=== PATIENT | male | born 1945 | race Caucasian/White ===

== ENCOUNTER 2019-12-06 19:05 | Inpatient (IN) | payer MEDICARE, OTHER ==
[~2019-12-06] VITALS: Ht 172.7 cm; Wt 75.7 kg
[2019-12-06 19:30] VITALS: BP 152/89
--- NOTE | 2019-12-06 19:33 | Emergency Room Report ---
History of Present Illness General Chief Complaint: General Complaint Source: Patient Present Illness HPI Disclaimer: Please note that this report is being documented using [employer] technology. This can lead to erroneous entry secondary to incorrect interpretation by the dictating instrument. HPI: 74-year-old male presents from street by EMS due to being found in the grass. Patient has no medical complaints including chest pain shortness of breath nausea vomiting or fevers. He reports a history of hypertension and diabetes but seems mildly confused. He does have a wound noted to the nose and states that he was "attacked by a dog recently". Patient appears mildly disheveled. He denies being homeless. PMH: Reported hypertension and diabetes PSH: Reviewed Social Hx: Denies smoking drinks occasionally denies illicit drug use Allergies: Coded Allergies: No Known Allergies (Unverified , 12/06/19) COVID-19 Screening Contact w/high risk pt: No Experienced COVID-19 symptoms?: No COVID-19 Testing performed HOME SECURITY PROFESSIONAL: No Patient History Reviewed Nursing Documentation: PMH: Agreed; PSxH: Agreed Nursing Documentation-PMH Past Medical History: No History, Except For Hx Hypertension: Yes Review of Systems All Other Systems: negative except mentioned in HPI Physical Exam Vital Signs Date Time Temp Pulse Resp B/P (MAP) Pulse Ox O2 Delivery O2 Flow Rate FiO2 12/06/19 18:59 99.5 108 18 172/89 (116) 97 Room Air Sp02 EP Interpretation: reviewed, normal General Appearance: no apparent distress, other - Poorly groomed Head: normocephalic, other - Laceration noted to bridge of nose Eyes: bilateral eye PERRL, bilateral eye EOMI ENT: hearing grossly normal, moist mucus membranes Neck: full range of motion, supple Respiratory: lungs clear, normal breath sounds, no rhonchi, no respiratory distress, no retraction, no wheezing Cardiovascular #1: normal peripheral pulses, no murmur, tachycardia Gastrointestinal: non tender, soft, non-distended, no guarding Neurologic: alert, business development manager III-XII nml as tested, oriented x3, cerebellar normal, normal gait, no focal defects, other - Patient alert and oriented x3 however has difficulty recalling his address his primary physician or other details Skin: normal color, warm/dry Procedures Laceration/Wound Repair Laceration/Wound Repair : Consent: Verbal Wound Location: face Wound's Depth, Shape: superficial Wound Explored: clean Wound Repaired With: Dermabond Patient Tolerated: Well Complications: None Medical Decision Making Diagnostic Impression: Primary Impression: Acute encephalopathy Additional Impressions: Dehydration Abrasion of nose ER Course MDM:Differential diagnosis included but not limited to encephalopathy, dehydration, alcohol intoxication, head injury, dementia, UTI to name a few Clinical course-IV inserted laboratory studies were sent, IV fluids given. Laboratory studies demonstrated mild elevation in creatinine, elevation in sodium. I do suspect patient is dehydrated as he was found outside. I did discuss patient's living situation he states he lives with his and provided a number however the number had been disconnected. Patient does appear to have some elements of dementia but we cannot confirm this as there is no family to confirm. As he cannot be safely discharged home or to family will be admitted to the medical floor for further observation. Labs - Laboratory Tests Test 12/06/19 19:30 12/06/19 21:00 White Blood Count 10.2 K/UL (4.8-10.8) Red Blood Count 4.66 M/UL (4.70-6.10) L Hemoglobin 14.0 G/DL (14.2-18.0) L Hematocrit 43.4 % (42.0-52.0) Mean Corpuscular Volume 93 FL (80-99) Mean Corpuscular Hemoglobin 30.1 PG (27.0-31.0) Mean Corpuscular Hemoglobin Concent 32.4 G/DL (32.0-36.0) Red Cell Distribution Width 13.8 % (11.6-14.8) Platelet Count 216 K/UL (150-450) Mean Platelet Volume 7.2 FL (6.5-10.1) Neutrophils (%) (Auto) 86.9 % (45.0-75.0) H Lymphocytes (%) (Auto) 5.6 % (20.0-45.0) L Monocytes (%) (Auto) 7.2 % (1.0-10.0) Eosinophils (%) (Auto) 0.0 % (0.0-3.0) Basophils (%) (Auto) 0.3 % (0.0-2.0) Sodium Level 152 MMOL/L (136-145) H Potassium Level 3.9 MMOL/L (3.5-5.1) Chloride Level 113 MMOL/L (98-107) H Carbon Dioxide Level 30 MMOL/L (21-32) Anion Gap 9 mmol/L (5-15) Blood Urea Nitrogen 36 mg/dL (7-18) H Creatinine 2.0 MG/DL (0.55-1.30) H Estimated Glomerular Filtration Rate 32.8 mL/min (>60) Glucose Level 155 MG/DL (74-106) H Calcium Level 10.3 MG/DL (8.5-10.1) H Total Bilirubin 1.1 MG/DL (0.2-1.0) H Direct Bilirubin 0.2 MG/DL (0.0-0.3) Aspartate Amino Transferase (AST) 37 U/L (15-37) Alanine Aminotransferase (ALT) 36 U/L (12-78) Alkaline Phosphatase 70 U/L (46-116) Ammonia 25 umol/L (11-32) Total Protein 8.4 G/DL (6.4-8.2) H Albumin 4.2 G/DL (3.4-5.0) Globulin 4.2 g/dL Albumin/Globulin Ratio 1.0 (1.0-2.7) Serum Alcohol < 3 mg/dL Urine Color Yellow Urine Appearance Slightly cloudy Urine pH 5 (4.5-8.0) Urine Specific [place] 1.020 (1.005-1.035) Urine Protein 3+ (NEGATIVE) H Urine Glucose (UA) Negative (NEGATIVE) Urine Ketones 1+ (NEGATIVE) H Urine Blood 3+ (NEGATIVE) H Urine Nitrite Negative (NEGATIVE) Urine Bilirubin Negative (NEGATIVE) Urine Urobilinogen Normal MG/DL (0.0-1.0) Urine Leukocyte Esterase Negative (NEGATIVE) Urine RBC 5-10 /HPF (0 - 0) H Urine WBC 0-2 /HPF (0 - 0) Urine Squamous Epithelial Cells Occasional /LPF Urine Bacteria Few /HPF (NONE) Urine Fine Granular Casts 0-2 /LPF (NONE) H Urine Opiates Screen Negative (NEGATIVE) Urine Barbiturates Screen Negative (NEGATIVE) Phencyclidine (PCP) Screen Negative (NEGATIVE) Urine Amphetamines Screen Negative (NEGATIVE) Urine Benzodiazepines Screen Negative (NEGATIVE) Urine Cocaine Screen Negative (NEGATIVE) Urine Marijuana (THC) Screen Negative (NEGATIVE) On reevaluation: Patient remained in no acute distress Plan-admission to the medical floor CT/MRI/US Diagnostic Results CT/MRI/US Diagnostic Results : Imaging Test Ordered: CT scan of the brain Impression IMPRESSION: 1. 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 2. No acute intracranial pathology is detected. 3. If there is concern for etiology such as early acute lacunar infarcts, magnetic resonance imaging of the brain with diffusion-weighted sequences should be performed. Last Vital Signs Date Time Temp Pulse Resp B/P (MAP) Pulse Ox O2 Delivery O2 Flow Rate FiO2 12/06/19 18:59 99.5 108 18 172/89 (116) 97 Room Air Disposition: ADMITTED INPATIENT Condition: Serious Rudy Bee M.D. Dec 06, 2019 19:33
[2019-12-06 19:53] LABS: HEMATOCRIT 43.4 % (42.0-52.0); MEAN CORPUSCULAR VOLUME 93 FL (80-99); PLATELET COUNT 216 K/UL (150-450); RED BLOOD COUNT 4.66 M/UL (4.70-6.10); RED CELL DISTRIBUTION WIDTH 13.8 % (11.6-14.8); WHITE BLOOD COUNT 10.2 K/UL (4.8-10.8)
[2019-12-06 19:54] LABS: BASOPHILS % (AUTO) 0.3 % (0.0-2.0); LYMPHOCYTES % (AUTO) 5.6 % (20.0-45.0); MONOCYTES % (AUTO) 7.2 % (1.0-10.0); NEUTROPHILS % (AUTO) 86.9 % (45.0-75.0)
--- NOTE | 2019-12-06 20:01 | Diagnostic Imaging Report ---
EXAM: CT Head Without Intravenous Contrast CLINICAL HISTORY: Altered mental status. TECHNIQUE: Axial computed tomography images of the head/brain without intravenous contrast. CTDI is 53.4 mGy and DLP is 1001.2 mGy-cm. One or more of the following dose reduction techniques were used: automated exposure control, adjustment of the mA and/or kV according to patient size, use of iterative reconstruction technique. COMPARISON: None. FINDINGS: Brain: Small vessel disease of aging. No abnormal extra-axial collection. No hemorrhage. Midline shift: No midline shift or mass-effect is Ventricles: There is prominence of the ventricular system, cortical sulci, basilar cisterns, compatible with age related atrophy. Bones/joints: The calvarium is unremarkable. No acute fracture. Soft tissues: Unremarkable. Sinuses: Visualized sinuses are unremarkable. Mastoid air cells: Mastoid air cells are well pneumatized to IMPRESSION: 1. 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 2. No acute intracranial pathology is detected. 3. If there is concern for etiology such as early acute lacunar infarcts, magnetic resonance imaging of the brain with diffusion-weighted sequences should be performed.
[2019-12-06 20:10] LABS: ANION GAP 9 mmol/L (5-15); BLOOD UREA NITROGEN 36 mg/dL (7-18); CALCIUM 10.3 MG/DL (8.5-10.1); CARBON DIOXIDE 30 MMOL/L (21-32); CHLORIDE 113 MMOL/L (98-107); POTASSIUM 3.9 MMOL/L (3.5-5.1); SODIUM 152 MMOL/L (136-145)
[2019-12-06 20:20] LABS: ALANINE AMINOTRANSFERASE 36 U/L (12-78); ALBUMIN 4.2 G/DL (3.4-5.0); ALKALINE PHOSPHATASE 70 U/L (46-116); ASPARTATE AMINO TRANSFERASE 37 U/L (15-37); BILIRUBIN,TOTAL 1.1 MG/DL (0.2-1.0)
[2019-12-06 21:53] LABS: APPEARANCE,URINE SLIGHTLY CLOUDY; BILIRUBIN, URINE NEGATIVE (NEGATIVE); GLUCOSE, URINE (UA) NEGATIVE (NEGATIVE); KETONES,URINE 1+ (NEGATIVE); LEUKOCYTE ESTERASE ,URINE NEGATIVE (NEGATIVE); NITRITE,URINE NEGATIVE (NEGATIVE); PH,URINE 5 (4.5-8.0); PROTEIN,URINE 3+ (NEGATIVE); UROBILINOGEN,URINE NORMAL MG/DL (0.0-1.0)
[2019-12-06 21:58] LABS: COLOR,URINE YELLOW
[2019-12-06 22:00] VITALS: BP 146/73
[2019-12-06 22:02] LABS: BILIRUBIN,DIRECT 0.2 MG/DL (0.0-0.3)
[2019-12-06] MEDS ORDERED: Mylanta II UD 30ml ORAL PRN (22:45)
--- NOTE | 2019-12-06 22:49 | History and Physical ---
History of Present Illness General Reason for Hospitalization: General Complaint Present Illness HPI This is a 74yo WM who was brought in via EMS to ED after finding down and out. He is a poor historian and therefore difficult to obtain further medical information from him. Based on appearance his pants are soiled and hygiene is poor. His initial CT of brain is negative for acute etiology. He has no focal weakness. Allergies: Coded Allergies: No Known Allergies (Unverified , 12/06/19) COVID-19 Screening Contact w/high risk pt: No Recent Travel to affected area: No Experienced COVID-19 symptoms?: No Patient History Healthcare decision maker Resuscitation status Advanced Directive on File Physical Exam General Appearance: WD/WN, no apparent distress, alert, confused HEENT: normocephalic, PERRL, EOMI, no JVD Neck: non-tender Respiratory/Chest: chest wall non-tender, lungs clear, normal breath sounds Cardiovascular/Chest: normal peripheral pulses, normal rate, regular rhythm Abdomen: non tender, soft Genitourinary/Rectal: other - rash in groining Extremities: normal range of motion, non-tender, normal inspection Neurologic: president and cmo II-XII grossly normal Last 24 Hour Vital Signs Date Time Temp Pulse Resp B/P (MAP) Pulse Ox O2 Delivery O2 Flow Rate FiO2 12/06/19 19:30 98 18 Room Air 12/06/19 19:30 99.5 98 18 152/89 97 Room Air 12/06/19 18:59 99.5 108 18 172/89 (116) 97 Room Air Laboratory Tests Test 12/06/19 19:30 12/06/19 21:00 White Blood Count 10.2 K/UL (4.8-10.8) Red Blood Count 4.66 M/UL (4.70-6.10) L Hemoglobin 14.0 G/DL (14.2-18.0) L Hematocrit 43.4 % (42.0-52.0) Mean Corpuscular Volume 93 FL (80-99) Mean Corpuscular Hemoglobin 30.1 PG (27.0-31.0) Mean Corpuscular Hemoglobin Concent 32.4 G/DL (32.0-36.0) Red Cell Distribution Width 13.8 % (11.6-14.8) Platelet Count 216 K/UL (150-450) Mean Platelet Volume 7.2 FL (6.5-10.1) Neutrophils (%) (Auto) 86.9 % (45.0-75.0) H Lymphocytes (%) (Auto) 5.6 % (20.0-45.0) L Monocytes (%) (Auto) 7.2 % (1.0-10.0) Eosinophils (%) (Auto) 0.0 % (0.0-3.0) Basophils (%) (Auto) 0.3 % (0.0-2.0) Sodium Level 152 MMOL/L (136-145) H Potassium Level 3.9 MMOL/L (3.5-5.1) Chloride Level 113 MMOL/L (98-107) H Carbon Dioxide Level 30 MMOL/L (21-32) Anion Gap 9 mmol/L (5-15) Blood Urea Nitrogen 36 mg/dL (7-18) H Creatinine 2.0 MG/DL (0.55-1.30) H Estimat Glomerular Filtration Rate 32.8 mL/min (>60) Glucose Level 155 MG/DL (74-106) H Calcium Level 10.3 MG/DL (8.5-10.1) H Total Bilirubin 1.1 MG/DL (0.2-1.0) H Direct Bilirubin 0.2 MG/DL (0.0-0.3) Aspartate Amino Transf (AST/SGOT) 37 U/L (15-37) Alanine Aminotransferase (ALT/SGPT) 36 U/L (12-78) Alkaline Phosphatase 70 U/L (46-116) Ammonia 25 umol/L (11-32) Total Protein 8.4 G/DL (6.4-8.2) H Albumin 4.2 G/DL (3.4-5.0) Globulin 4.2 g/dL Albumin/Globulin Ratio 1.0 (1.0-2.7) Serum Alcohol < 3 mg/dL Urine Color Yellow Urine Appearance Slightly cloudy Urine pH 5 (4.5-8.0) Urine Specific [place] 1.020 (1.005-1.035) Urine Protein 3+ (NEGATIVE) H Urine Glucose (UA) Negative (NEGATIVE) Urine Ketones 1+ (NEGATIVE) H Urine Blood 3+ (NEGATIVE) H Urine Nitrite Negative (NEGATIVE) Urine Bilirubin Negative (NEGATIVE) Urine Urobilinogen Normal MG/DL (0.0-1.0) Urine Leukocyte Esterase Negative (NEGATIVE) Urine RBC 5-10 /HPF (0 - 0) H Urine WBC 0-2 /HPF (0 - 0) Urine Squamous Epithelial Cells Occasional /LPF Urine Bacteria Few /HPF (NONE) Urine Fine Granular Casts 0-2 /LPF (NONE) H Urine Opiates Screen Negative (NEGATIVE) Urine Barbiturates Screen Negative (NEGATIVE) Phencyclidine (PCP) Screen Negative (NEGATIVE) Urine Amphetamines Screen Negative (NEGATIVE) Urine Benzodiazepines Screen Negative (NEGATIVE) Urine Cocaine Screen Negative (NEGATIVE) Urine Marijuana (THC) Screen Negative (NEGATIVE) Height (Feet): 5 Height (Inches): 8.00 Weight (Pounds): 130 Medications Current Medications Medications (Trade) Dose Ordered Sig/Sue Route PRN Reason Start Time Stop Time Status Last Admin Dose Admin Acetaminophen (Tylenol) 650 mg Q4H PRN ORAL Mild Pain (Pain Scale 1-3) 12/06/19 22:45 01/05/20 22:44 UNV Al Hydroxide/Mg Hydroxide (Mylanta II) 30 ml Q6H PRN ORAL dyspepsia 12/06/19 22:45 01/05/20 22:44 UNV Dextrose (Dextrose 50%) 25 ml Q30M PRN IV Hypoglycemia 12/06/19 22:45 03/05/20 22:44 UNV Dextrose (Dextrose 50%) 50 ml Q30M PRN IV Hypoglycemia 12/06/19 22:45 03/05/20 22:44 UNV Dextrose/Sodium Chloride 1,000 ml @ 100 mls/hr Q10H IV 12/06/19 23:43 01/05/20 23:42 UNV Diphenhydramine HCl (Benadryl) 25 mg Q6H PRN ORAL Itching/Pruritis 12/06/19 22:45 01/05/20 22:44 UNV Heparin Sodium (Porcine) (Heparin 5000 units/ml) 5,000 units EVERY 12 HOURS SUBQ 12/07/19 09:00 01/21/20 08:59 UNV Assessment/Plan Problem List: (1) Acute kidney injury Assessment & Plan: Continue with IVF due to prolong pre renal ANA in a dehydrated state likely starting to becomes a ATN with noted granular cast in urine. Repeat BMP in the morning. Keep SBP <160 (added clonidine) ICD Codes: N17.9 - Acute kidney failure, unspecified SNOMED: 0118196, [id number] (2) Dehydration Assessment & Plan: As above continue with IVF. ICD Codes: E86.0 - Dehydration SNOMED: 00125353, [id number] (3) Acute encephalopathy Assessment & Plan: CTB negative Ammonia normal BG normal Tox screen normal Ethanol normal Elevated serum sodium continue IVF PT evaluation ICD Codes: G93.40 - Encephalopathy, unspecified SNOMED: 37352132, [id number] Jose Alfredo Bello D.O. Dec 06, 2019 22:49
--- NOTE | 2019-12-06 22:54 | Neurology Progress Note ---
Interim History Interim History Interim History 74-year-old male presents from street by EMS due to being found in the grass. Patient has no medical complaints including chest pain shortness of breath nausea vomiting or fevers. He reports a history of hypertension and diabetes but seems mildly confused. ct brain neg for hemorrhage no evidence of seizure like activity Objective Physical Exam Last Vital Signs Date Time Temp Pulse Resp B/P (MAP) Pulse Ox O2 Delivery O2 Flow Rate FiO2 12/06/19 19:30 98 18 Room Air 12/06/19 19:30 99.5 152/89 97 Laboratory Tests Test 12/06/19 19:30 12/06/19 21:00 White Blood Count 10.2 K/UL (4.8-10.8) Red Blood Count 4.66 M/UL (4.70-6.10) L Hemoglobin 14.0 G/DL (14.2-18.0) L Hematocrit 43.4 % (42.0-52.0) Mean Corpuscular Volume 93 FL (80-99) Mean Corpuscular Hemoglobin 30.1 PG (27.0-31.0) Mean Corpuscular Hemoglobin Concent 32.4 G/DL (32.0-36.0) Red Cell Distribution Width 13.8 % (11.6-14.8) Platelet Count 216 K/UL (150-450) Mean Platelet Volume 7.2 FL (6.5-10.1) Neutrophils (%) (Auto) 86.9 % (45.0-75.0) H Lymphocytes (%) (Auto) 5.6 % (20.0-45.0) L Monocytes (%) (Auto) 7.2 % (1.0-10.0) Eosinophils (%) (Auto) 0.0 % (0.0-3.0) Basophils (%) (Auto) 0.3 % (0.0-2.0) Sodium Level 152 MMOL/L (136-145) H Potassium Level 3.9 MMOL/L (3.5-5.1) Chloride Level 113 MMOL/L (98-107) H Carbon Dioxide Level 30 MMOL/L (21-32) Anion Gap 9 mmol/L (5-15) Blood Urea Nitrogen 36 mg/dL (7-18) H Creatinine 2.0 MG/DL (0.55-1.30) H Estimat Glomerular Filtration Rate 32.8 mL/min (>60) Glucose Level 155 MG/DL (74-106) H Calcium Level 10.3 MG/DL (8.5-10.1) H Total Bilirubin 1.1 MG/DL (0.2-1.0) H Direct Bilirubin 0.2 MG/DL (0.0-0.3) Aspartate Amino Transf (AST/SGOT) 37 U/L (15-37) Alanine Aminotransferase (ALT/SGPT) 36 U/L (12-78) Alkaline Phosphatase 70 U/L (46-116) Ammonia 25 umol/L (11-32) Total Protein 8.4 G/DL (6.4-8.2) H Albumin 4.2 G/DL (3.4-5.0) Globulin 4.2 g/dL Albumin/Globulin Ratio 1.0 (1.0-2.7) Serum Alcohol < 3 mg/dL Urine Color Yellow Urine Appearance Slightly cloudy Urine pH 5 (4.5-8.0) Urine Specific [place] 1.020 (1.005-1.035) Urine Protein 3+ (NEGATIVE) H Urine Glucose (UA) Negative (NEGATIVE) Urine Ketones 1+ (NEGATIVE) H Urine Blood 3+ (NEGATIVE) H Urine Nitrite Negative (NEGATIVE) Urine Bilirubin Negative (NEGATIVE) Urine Urobilinogen Normal MG/DL (0.0-1.0) Urine Leukocyte Esterase Negative (NEGATIVE) Urine RBC 5-10 /HPF (0 - 0) H Urine WBC 0-2 /HPF (0 - 0) Urine Squamous Epithelial Cells Occasional /LPF Urine Bacteria Few /HPF (NONE) Urine Fine Granular Casts 0-2 /LPF (NONE) H Urine Opiates Screen Negative (NEGATIVE) Urine Barbiturates Screen Negative (NEGATIVE) Phencyclidine (PCP) Screen Negative (NEGATIVE) Urine Amphetamines Screen Negative (NEGATIVE) Urine Benzodiazepines Screen Negative (NEGATIVE) Urine Cocaine Screen Negative (NEGATIVE) Urine Marijuana (THC) Screen Negative (NEGATIVE) General: well nourished Head: normocophalic Neck: no rigidity EENT: benign Neurologic Exam Mental Status: alert Cranial Nerve II: fundus normal Cranial Nerves III, IV, : PERRLA Cranial Nerve V: normal facial sensations Objective RRR non focal exam tangetial Impression/Recommendations Problems: (1) Dehydration (2) Abrasion of nose (3) Acute encephalopathy (4) Encephalopathy (5) encephalopathy (6) Acute kidney injury Status: progressing Diagnostic Impression Acute encephalopathy, likely metabolic IVFs del precautions PT OT Raghu Isaac MD Dec 06, 2019 22:54
[2019-12-06] MEDS ORDERED: cloNIDine 0.2mg Tab ORAL PRN (23:35)
[2019-12-06 23:45] VITALS: BP 169/79
[2019-12-06] MEDS: D5 1/2NS 1,000 ML IV SCH (23:51)
[2019-12-07] VITALS: BP 151/72
[2019-12-07 04:00] VITALS: BP 156/78
[2019-12-07 07:08] LABS: ANION GAP 7 mmol/L (5-15); BLOOD UREA NITROGEN 29 mg/dL (7-18); CALCIUM 8.6 MG/DL (8.5-10.1); CARBON DIOXIDE 29 MMOL/L (21-32); CHLORIDE 109 MMOL/L (98-107); CREATININE 1.4 MG/DL (0.55-1.30); POTASSIUM 3.5 MMOL/L (3.5-5.1); SODIUM 145 MMOL/L (136-145)
[2019-12-07 07:31] LABS: BASOPHILS % (AUTO) 0.5 % (0.0-2.0); EOSINOPHILS % (AUTO) 0.3 % (0.0-3.0); HEMOGLOBIN 12.4 G/DL (14.2-18.0); LYMPHOCYTES % (AUTO) 12.9 % (20.0-45.0); MEAN CORPUSCULAR VOLUME 94 FL (80-99); MONOCYTES % (AUTO) 11.9 % (1.0-10.0); NEUTROPHILS % (AUTO) 74.3 % (45.0-75.0); PLATELET COUNT 171 K/UL (150-450); RED BLOOD COUNT 4.15 M/UL (4.70-6.10); RED CELL DISTRIBUTION WIDTH 12.9 % (11.6-14.8); WHITE BLOOD COUNT 10.7 K/UL (4.8-10.8)
[2019-12-07 08:00] VITALS: BP 164/80
[2019-12-07] MEDS ORDERED: Heparin 5000 units/ml inj SUBQ SCH (09:00)
[2019-12-07 09:26] VITALS: BP 164/80
[2019-12-07] MEDS: D5 1/2NS 1,000 ML IV SCH (10:00)
--- NOTE | 2019-12-07 11:20 | Discharge Instructions ---
Discharge Instructions Discharge Instructions Call MD/Return to Hospital if: low urine, or flank pain Diet: 2 GM sodium (low sodium) Activity: light activity For Congestive Heart Failure Reminder Report to your physician any weight gain of 5 pounds or more in one week. John Jacobs M.D. Dec 07, 2019 11:20
--- NOTE | 2019-12-07 11:37 | Discharge Summary ---
Discharge Summary Hospital Course Date of Admission Dec 06, 2019 at 20:48 Date of Discharge Admitting Diagnosis encephalopathy HPI This is a 74yo WM who was brought in via EMS to ED after finding down and out. He is a poor historian and therefore difficult to obtain further medical information from him. Based on appearance his pants are soiled and hygiene is poor. His initial CT of brain is negative for acute etiology. He has no focal weakness. Hospital Course Patient was rehydrated and ANA and electrolytes normalized. We got in contact with family and he has dementia and likes to wonder. Was evaluated by PT and recommends SNF or home PT. states pateint is at his baseline both mentally and physically. She would like to take him home at this point. Patient should have repeat labs done in a week to make sure kidney function and electrolytes are ok. Discharge Condition Upon Discharge: stable Discharge Vital Signs Last Vital Signs Date Time Temp Pulse Resp B/P (MAP) Pulse Ox O2 Delivery O2 Flow Rate FiO2 12/07/19 09:26 164/80 12/07/19 08:00 96.8 73 21 94 12/07/19 00:19 Room Air Discharge Disposition Patient was discharged to home with Discharge Diagnoses: (1) Acute encephalopathy (2) Dehydration (3) Acute kidney injury (4) Abrasion of nose Discharge Instructions Discharge Instructions Call MD/Return to Hospital if: low urine, or flank pain Activity: light activity John Jacobs M.D. Dec 07, 2019 11:37
--- NOTE | 2019-12-07 12:32 | Neurology Progress Note ---
Interim History Interim History Interim History more alert, likely underlying dementia Objective Physical Exam Last Vital Signs Date Time Temp Pulse Resp B/P (MAP) Pulse Ox O2 Delivery O2 Flow Rate FiO2 12/07/19 09:26 164/80 12/07/19 09:00 Room Air 12/07/19 08:00 96.8 73 21 94 Laboratory Tests Test 12/06/19 19:30 12/06/19 21:00 12/07/19 05:16 White Blood Count 10.2 K/UL (4.8-10.8) 10.7 K/UL (4.8-10.8) Red Blood Count 4.66 M/UL (4.70-6.10) L 4.15 M/UL (4.70-6.10) L Hemoglobin 14.0 G/DL (14.2-18.0) L 12.4 G/DL (14.2-18.0) L Hematocrit 43.4 % (42.0-52.0) 39.0 % (42.0-52.0) L Mean Corpuscular Volume 93 FL (80-99) 94 FL (80-99) Mean Corpuscular Hemoglobin 30.1 PG (27.0-31.0) 29.9 PG (27.0-31.0) Mean Corpuscular Hemoglobin Concent 32.4 G/DL (32.0-36.0) 31.9 G/DL (32.0-36.0) L Red Cell Distribution Width 13.8 % (11.6-14.8) 12.9 % (11.6-14.8) Platelet Count 216 K/UL (150-450) 171 K/UL (150-450) Mean Platelet Volume 7.2 FL (6.5-10.1) 6.4 FL (6.5-10.1) L Neutrophils (%) (Auto) 86.9 % (45.0-75.0) H 74.3 % (45.0-75.0) Lymphocytes (%) (Auto) 5.6 % (20.0-45.0) L 12.9 % (20.0-45.0) L Monocytes (%) (Auto) 7.2 % (1.0-10.0) 11.9 % (1.0-10.0) H Eosinophils (%) (Auto) 0.0 % (0.0-3.0) 0.3 % (0.0-3.0) Basophils (%) (Auto) 0.3 % (0.0-2.0) 0.5 % (0.0-2.0) Sodium Level 152 MMOL/L (136-145) H 145 MMOL/L (136-145) Potassium Level 3.9 MMOL/L (3.5-5.1) 3.5 MMOL/L (3.5-5.1) Chloride Level 113 MMOL/L (98-107) H 109 MMOL/L (98-107) H Carbon Dioxide Level 30 MMOL/L (21-32) 29 MMOL/L (21-32) Anion Gap 9 mmol/L (5-15) 7 mmol/L (5-15) Blood Urea Nitrogen 36 mg/dL (7-18) H 29 mg/dL (7-18) H Creatinine 2.0 MG/DL (0.55-1.30) H 1.4 MG/DL (0.55-1.30) H Estimat Glomerular Filtration Rate 32.8 mL/min (>60) 49.5 mL/min (>60) Glucose Level 155 MG/DL (74-106) H 125 MG/DL (74-106) H Calcium Level 10.3 MG/DL (8.5-10.1) H 8.6 MG/DL (8.5-10.1) Total Bilirubin 1.1 MG/DL (0.2-1.0) H Direct Bilirubin 0.2 MG/DL (0.0-0.3) Aspartate Amino Transf (AST/SGOT) 37 U/L (15-37) Alanine Aminotransferase (ALT/SGPT) 36 U/L (12-78) Alkaline Phosphatase 70 U/L (46-116) Ammonia 25 umol/L (11-32) Total Protein 8.4 G/DL (6.4-8.2) H Albumin 4.2 G/DL (3.4-5.0) Globulin 4.2 g/dL Albumin/Globulin Ratio 1.0 (1.0-2.7) Serum Alcohol < 3 mg/dL Urine Color Yellow Urine Appearance Slightly cloudy Urine pH 5 (4.5-8.0) Urine Specific [place] 1.020 (1.005-1.035) Urine Protein 3+ (NEGATIVE) H Urine Glucose (UA) Negative (NEGATIVE) Urine Ketones 1+ (NEGATIVE) H Urine Blood 3+ (NEGATIVE) H Urine Nitrite Negative (NEGATIVE) Urine Bilirubin Negative (NEGATIVE) Urine Urobilinogen Normal MG/DL (0.0-1.0) Urine Leukocyte Esterase Negative (NEGATIVE) Urine RBC 5-10 /HPF (0 - 0) H Urine WBC 0-2 /HPF (0 - 0) Urine Squamous Epithelial Cells Occasional /LPF Urine Bacteria Few /HPF (NONE) Urine Fine Granular Casts 0-2 /LPF (NONE) H Urine Opiates Screen Negative (NEGATIVE) Urine Barbiturates Screen Negative (NEGATIVE) Phencyclidine (PCP) Screen Negative (NEGATIVE) Urine Amphetamines Screen Negative (NEGATIVE) Urine Benzodiazepines Screen Negative (NEGATIVE) Urine Cocaine Screen Negative (NEGATIVE) Urine Marijuana (THC) Screen Negative (NEGATIVE) General: well nourished Head: normocophalic Neck: no rigidity EENT: benign Neurologic Exam Mental Status: alert Cranial Nerve II: fundus normal Cranial Nerves III, IV, : PERRLA Cranial Nerve V: normal facial sensations Objective RRR non focal exam tangetial Impression/Recommendations Problems: (1) Dehydration (2) Abrasion of nose (3) Acute encephalopathy (4) Encephalopathy (5) encephalopathy (6) Acute kidney injury Status: progressing Diagnostic Impression Acute encephalopathy, likely metabolic Dementia IVFs del precautions PT OT ok to dc Raghu Isaac MD Dec 07, 2019 12:32
== END 2019-12-07 12:33 | disposition home or self-care (01) | DRG 682 ==
LOC: EDBD 19:05 → EMR 19:30 → 4E 20:48 → EDBEDREQ 22:10
DX: N17.0 Acute kidney failure with tubular necrosis (principal); G93.41 Metabolic encephalopathy; F03.91 Unspecified dementia, unspecified severity, with behavioral disturbance; E86.0 Dehydration; S00.31XA Abrasion of nose, initial encounter; X58.XXXA Exposure to other specified factors, initial encounter; Z91.83 Wandering in diseases classified elsewhere
CPT/HCPCS: 36415; 70450; 80048; 80053; 80307; 81003; 82140; 82248; 85025; 96360; 96361; 99285; G0480; U0002